=== PATIENT | female | born 1990 | race Two or more races ===

== ENCOUNTER 2017-01-19 23:34 | Emergency (ER) | payer OTHER ==
[2017-01-20 02:21] VITALS: BP 135/62
== END 2017-01-20 02:21 | disposition home or self-care (01) ==
LOC: ED 23:34
DX: S61.012A Laceration without foreign body of left thumb without damage to nail, initial encounter (principal); G51.0 Bell's palsy; W26.0XXA Contact with knife, initial encounter; Y93.89 Activity, other specified; Y99.8 Other external cause status; Y92.89 Other specified places as the place of occurrence of the external cause

== ENCOUNTER 2017-02-05 02:48 | Emergency (ER) | payer OTHER ==
[2017-02-05 05:34] VITALS: BP 122/70
== END 2017-02-05 05:34 | disposition home or self-care (01) ==
LOC: ED 02:48
DX: N39.0 Urinary tract infection, site not specified (principal)
CPT/HCPCS: 87491; 87591

== ENCOUNTER 2017-02-10 11:11 | Emergency (ER) | payer OTHER ==
[2017-02-10 13:48] VITALS: BP 110/87
[2017-02-13 09:16] LABS: RAPID PLASMA REAGIN Non Reactive (Non Reactive)
== END 2017-02-10 13:48 | disposition home or self-care (01) ==
LOC: ED 11:11
PROVIDERS: Emergency Medicine
DX: Z11.3 Encounter for screening for infections with a predominantly sexual mode of transmission (principal); Z87.440 Personal history of urinary (tract) infections
CPT/HCPCS: 36415

== ENCOUNTER 2017-06-05 22:00 | Emergency (ER) | payer OTHER ==
[2017-06-06 00:21] VITALS: BP 120/73
== END 2017-06-06 00:21 | disposition home or self-care (01) ==
LOC: ED 22:00
DX: F41.9 Anxiety disorder, unspecified (principal); G51.0 Bell's palsy
CPT/HCPCS: J2060